=== PATIENT | female | born 1985 | race Two or more races ===

== ENCOUNTER 2019-04-05 20:20 | Inpatient (IN) | payer BC, OTHER ==
[2019-04-05] MEDS ORDERED: ELECTROLYTE-148 SOLN 1,000 ML IV SCH (21:00)
[2019-04-05] MEDS ORDERED: NALOXONE HCL 0.4 MG/ML VIAL IVPUSH PRN (21:05)
[2019-04-05 21:11] VITALS: BMI 25.0
[2019-04-05] MEDS ORDERED: FENTANYL/BUPIVACAINE/NS/PF - PCEA - 50 ML DISP.SYRIN EP SCH (21:15)
[2019-04-05 21:22] LABS: BASO % 0.5 % (0-2.0); HEMATOCRIT 37.1 % (32.4-45.2); HEMOGLOBIN 12.3 GM/dL (10.7-15.3); LYMPH % 9.3 % (8-40); MCHC 33.1 g/dl (32.0-36.0); MEAN CELL VOLUME 90.8 fl (80-96); MEAN PLT VOLUME 10.1 fl (7.5-11.1); MONO % 3.3 % (3.8-10.2); NEUT % 86.9 % (42.8-82.8); PLATELET COUNT 202 K/MM3 (134-434); RBC 4.09 M/mm3 (3.60-5.2); RDW 15.3 % (11.6-15.6); WHITE BLOOD COUNT 11.6 K/mm3 (4.0-10.0)
[2019-04-05 21:37] LABS: INR 0.93 (0.83-1.09)
[2019-04-05 21:40] LABS: ACTIVATED PTT 26.2 SECONDS (25.2-36.5)
[2019-04-05] MEDS ORDERED: LIDO 2%/EPI 1:200000 PRESRVFRE (20 ML SDVIAL) ONE (21:47)
[2019-04-05 21:50] LABS: BLOOD UREA NITROGEN 9.2 mg/dL (7-18); CALCIUM 8.8 mg/dL (8.5-10.1); CREATININE 0.6 mg/dL (0.55-1.3); POTASSIUM 3.7 mmol/L (3.5-5.1)
--- NOTE | 2019-04-05 22:18 | HP ---
Past Medical History - Primary Care Physician PCP:: Wesley De Leon E - Admission Chief Complaint: In labor, at term. History of Present Illness: First . EDC 04.15.2019. 38 wks 4 d. GBS neg. In active labor. History Source: Patient Limitations to Obtaining History: No Limitations - Past Medical History ...: 2 ...Para: 0 ...Term: 0 ...: 0 ...Spon : 0 ...Induced : 1 ...Multiple Gestation: 0 ...EDC by Sono: 04/15/19 - Past Surgical History Hx Myomectomy: No Hx Transabdominal Cerclage: No - Smoking History Smoking history: Never smoked Have you smoked in the past 12 months: No - Alcohol/Substance Use Hx Alcohol Use: No - Social History Usual Living Arrangement: Yes: With Spouse Occupation: criminal defense attorney History of Recent Travel: No Home Medications - Allergies Allergies/Adverse Reactions: Allergies Allergy/AdvReac Type Severity Reaction Status Date / Time No Known Allergies Allergy Verified 04/05/19 20:36 - Home Medications Home Medications: Ambulatory Orders Ferrous Sulfate [Feosol] 325 mg PO DAILY 04/05/19 Pnv No.95/Ferrous Fum/Folic AC [ Vitamin Tablet] 1 each PO DAILY Family Medical History Family History: Unremarkable Review of Systems - Review of Systems Constitutional: reports: No Symptoms Eyes: reports: No Symptoms HENT: reports: No Symptoms Neck: reports: No Symptoms Cardiovascular: reports: No Symptoms Respiratory: reports: No Symptoms Gastrointestinal: reports: No Symptoms Genitourinary: reports: No Symptoms Physical Exam - Maternity Vital Signs: Vital Signs Temperature 98.1 F 04/05/19 20:58 Pulse Rate 66 04/05/19 20:58 Respiratory Rate 04/05/19 20:58 Blood Pressure 100/70 04/05/19 20:58 O2 Sat by Pulse Oximetry (%) Constitutional: Yes: Well Nourished Eyes: Yes: WNL HENT: Yes: WNL Neck: Yes: WNL Cardiovascular: Yes: WNL Lungs: Clear to auscultation Breast(s): Yes: WNL - Abdominal Exam/OB Number of Fetuses: Single Presentation: Vertex Contractions: Yes Regularity: Regular Intensity: Mod/Strong Monitor Mode: External Heart Rate Location: Midline Category: I Accelerations: Uniform - Vaginal Exam/OB Dilatation (cm): 5 Effacement (%): 80 Presentation: Vertex/Position Station: 0 - Physical Exam Musculoskeletal: Yes: WNL Extremities: Yes: WNL Edema: No Integumentary: Yes: WNL Deep Tendon Reflex Grade: Normal +2 ...Motor Strength: WNL Psychiatric: Yes: WNL - Labs Lab Results: CBC, BMP 04/05/19 21:00 04/05/19 21:00 Hemorrhage Risk Assessment - Risk Factors Assessment/Plan: low risk Problem List - Problems (1) Active labor at term Code(s): [id number] - Assessment/Plan In labor. Epidural discussed. Expecting vaginal delivery.
--- NOTE | 2019-04-05 22:26 | PN ---
Progress Note, Labor Vaginal Exam #1 Labor Exam Date: 04/05/19 Labor Exam Time: 22:10 Heart Rate (range): cat 1 Dilatation: 7 Effacement (%): 100 Amniotic Membrane Status: Ruptured Presentation: Vertex/Position Station: +1 (AROM ? Epidural placed w good relief.)
[2019-04-05] MEDS ORDERED: LIDOCAINE HCL 1% PRESERVATIVE FREE - 30ML VIAL ONE (23:22)
[2019-04-05] MEDS ORDERED: OXYTOCIN 20 UNITS in 0.9% NS 20 UNIT/1,000 ML INFUS.BAG IV ONE (23:22)
--- NOTE | 2019-04-05 23:25 | PN ---
Progress Note, Labor Vaginal Exam #2 Labor Exam Date: 04/05/19 Labor Exam Time: 21:25 Dilatation: fully Station: +2 (Epidural off. Pushing.)
[2019-04-05] MEDS ORDERED: OXYTOCIN 30 UNITS in 0.9% NS 30 UNIT/500 ML INFUS.BAG IVPB ONE (23:39)
--- NOTE | 2019-04-06 00:43 | PN ---
Delivery - Delivery Vaginal Delivery: Shoulder/Difficult (Mild SD; posterior shoulder delivered first.) Maneuvers: Buchanan' Type of Anesthesia: Epidural Episiotomy/Laceration: Midline (Small epis, No lacerations. Repaired w Chr.2-0.) EBL (cc): 500 (Methergine IM) Delivery, Single - Stages of Labor Date of Delivery: 04/06/19 (nuchal cord x 1; tight.) Time of Delivery: 00:09 (Apgars 8 & 9.) Date Placenta Delivered: 04/06/19 Time Placenta Delivered: 00:12 - Condition of Infant Gender: Female Position: Left, OA (NVSD Tight nuchal cord. Mild SD; Buchanan' maneuver. Delayed clamping) - Feeding Plan Initial Plan: Exclusive throughout hospitalization Remarks - Remarks Remarks: Good delivery. Patient is very happy. So is her .
[2019-04-06] MEDS ORDERED: BISACODYL 10 MG SUPP.RECT RC PRN (00:47)
[2019-04-06] MEDS ORDERED: IBUPROFEN 600 MG TABLET (FP) PO PRN (00:47)
[2019-04-06] MEDS ORDERED: METHYLERGONOVINE MALEATE 0.2 MG/1 ML AMP IM PRN (00:47)
[2019-04-06] MEDS ORDERED: BENZOCAINE 28 GM HEMORRHOIDAL OINTMENT TP PRN (00:47)
[2019-04-06] MEDS ORDERED: WITCH HAZEL 50% (TUCKS) 40 PAD/JAR PAD TP PRN (00:47)
[2019-04-06] MEDS ORDERED: ACETAMINOPHEN 325 MG TABLET (FP) PO PRN (00:47)
[2019-04-06] MEDS ORDERED: BENZOCAINE 20% 57 GM BOTTLE TP PRN (00:47)
[2019-04-06] MEDS ORDERED: ELECTROLYTE-148 SOLN 1,000 ML IV SCH (01:00)
[2019-04-06] MEDS ORDERED: OXYTOCIN 20 UNITS in 0.9% NS 20 UNIT/1,000 ML INFUS.BAG IV SCH (01:00)
[2019-04-06] MEDS ORDERED: OXYTOCIN 20 UNITS in 0.9% NS 20 UNIT/1,000 ML INFUS.BAG IV ONE (02:43)
--- NOTE | 2019-04-06 06:11 | PN ---
Post Progress Note - Subjective Subjective: PPD # 0 Feels well. minimal pain. Happy. Post Day: 0 Type of Delivery: Vital Signs: Vital Signs Temperature 98.0 F 04/06/19 03:10 Pulse Rate 64 04/06/19 03:10 Respiratory Rate 20 04/06/19 03:10 Blood Pressure 124/68 04/06/19 03:10 O2 Sat by Pulse Oximetry (%) 99 04/06/19 01:45 Breast Exam: Yes: Soft Uterus: Yes: Fundus Firm Abdomen/GI: Yes: Abdomen soft, Tolerating PO Lochia: Yes: Rubra Lochia, amount: Moderate Extremities: Yes: Calves non-tender Perineum: Yes: Episiotomy (no pain.) - Labs Labs: CBC WBC 11.6 K/mm3 (4.0-10.0) H 04/05/19 21:00 RBC 4.09 M/mm3 (3.60-5.2) 04/05/19 21:00 Hgb 12.3 GM/dL (10.7-15.3) 04/05/19 21:00 Hct 37.1 % (32.4-45.2) D 04/05/19 21:00 MCV 90.8 fl (80-96) 04/05/19 21:00 MCH 30.0 pg (25.7-33.7) 04/05/19 21:00 MCHC 33.1 g/dl (32.0-36.0) 04/05/19 21:00 RDW 15.3 % (11.6-15.6) D 04/05/19 21:00 Plt Count 202 K/MM3 (134-434) D 04/05/19 21:00 MPV 10.1 fl (7.5-11.1) D 04/05/19 21:00 Absolute Neuts (auto) 10.1 K/mm3 (1.5-8.0) H 04/05/19 21:00 Neutrophils % 86.9 % (42.8-82.8) H D 04/05/19 21:00 Lymphocytes % 9.3 % (8-40) D 04/05/19 21:00 Monocytes % 3.3 % (3.8-10.2) L 04/05/19 21:00 Eosinophils % 0.0 % (0-4.5) D 04/05/19 21:00 Basophils % 0.5 % (0-2.0) 04/05/19 21:00 Nucleated RBC % 0 % (0-0) 04/05/19 21:00 Problem List - Problems (1) Active labor at term Assessment/Plan: Good recovery. Nursing. Good spirits. Code(s): [id number] - Assessment/Plan Uneventful NVSD. Small episiotomy, no lacerations; repaired. Doing well. Nursing. Routine PP care.
[2019-04-07 07:51] LABS: BASO % 0.5 % (0-2.0); EOS % 0.7 % (0-4.5); HEMOGLOBIN 9.8 GM/dL (10.7-15.3); LYMPH % 19.9 % (8-40); MCH 30.8 pg (25.7-33.7); MCHC 33.7 g/dl (32.0-36.0); MEAN CELL VOLUME 91.4 fl (80-96); MEAN PLT VOLUME 9.5 fl (7.5-11.1); MONO % 5.8 % (3.8-10.2); NEUT % 73.1 % (42.8-82.8); PLATELET COUNT 174 K/MM3 (134-434); RBC 3.18 M/mm3 (3.60-5.2); RDW 15.4 % (11.6-15.6); WHITE BLOOD COUNT 11.7 K/mm3 (4.0-10.0)
--- NOTE | 2019-04-07 09:00 | PN ---
Post Progress Note Type of Delivery: Vital Signs: Vital Signs Temperature 98.3 F 04/06/19 21:00 Pulse Rate 87 04/06/19 21:00 Respiratory Rate 20 04/06/19 21:00 Blood Pressure 109/67 04/06/19 21:00 O2 Sat by Pulse Oximetry (%) 99 04/06/19 01:45 Breast Exam: Yes: Soft Uterus: Yes: Fundus Firm Abdomen/GI: Yes: Abdomen soft Lochia: Yes: Rubra Lochia, amount: Small Perineum: Yes: Intact Activity: Ambulating (Doing well) - Labs Labs: CBC WBC 11.7 K/mm3 (4.0-10.0) H 04/07/19 06:15 RBC 3.18 M/mm3 (3.60-5.2) L 04/07/19 06:15 Hgb 9.8 GM/dL (10.7-15.3) L 04/07/19 06:15 Hct 29.0 % (32.4-45.2) L D 04/07/19 06:15 MCV 91.4 fl (80-96) 04/07/19 06:15 MCH 30.8 pg (25.7-33.7) 04/07/19 06:15 MCHC 33.7 g/dl (32.0-36.0) 04/07/19 06:15 RDW 15.4 % (11.6-15.6) 04/07/19 06:15 Plt Count 174 K/MM3 (134-434) 04/07/19 06:15 MPV 9.5 fl (7.5-11.1) 04/07/19 06:15 Absolute Neuts (auto) 8.6 K/mm3 (1.5-8.0) H 04/07/19 06:15 Neutrophils % 73.1 % (42.8-82.8) 04/07/19 06:15 Lymphocytes % 19.9 % (8-40) D 04/07/19 06:15 Monocytes % 5.8 % (3.8-10.2) 04/07/19 06:15 Eosinophils % 0.7 % (0-4.5) D 04/07/19 06:15 Basophils % 0.5 % (0-2.0) 04/07/19 06:15 Nucleated RBC % 0 % (0-0) 04/07/19 06:15 Problem List - Problems (1) Active labor at term Code(s): [id number] - Assessment/Plan Excellent recovery. Instructions given. Discharge.
[2019-04-07 16:02] VITALS: BP 120/67; PULSE 82; TEMP 97.8
[2019-04-07] MEDS ORDERED: SENNOSIDES/DOCUSATE COMBO (SENNA PLUS) TABLET (UD) PO PRN (22:00)
== END 2019-04-07 17:40 | disposition home or self-care (01) | DRG 807 ==
LOC: JLDR 20:20 → J3N 04-06 03:10 → J3W 04-06 15:03
PROVIDERS: ADMIT Specialist; ATTEND Specialist
PROC: 0W8NXZZ Division of Female Perineum, External Approach (ICD-10-PCS; principal; 2019-04-06)
PROC: 10E0XZZ Delivery of Products of Conception, External Approach (ICD-10-PCS; 2019-04-06)
DX: O69.1XX0 Labor and delivery complicated by cord around neck, with compression, not applicable or unspecified (principal); Z37.0 Single live birth; Z3A.38 38 weeks gestation of pregnancy
CPT/HCPCS: 36415; 59409; 80048; 85025; 85610; 85730; 86593; 86850; 86900; 86901

== ENCOUNTER 2020-10-25 13:30 | Inpatient (IN) | payer BC, OTHER ==
[2020-10-25] MEDS ORDERED: FENTANYL/BUPIVACAINE/NS/PF - PCEA - 50 ML DISP.SYRIN EP ONE (13:51)
[2020-10-25] MEDS ORDERED: PCA PUMP NR ONE (13:51)
[2020-10-25] MEDS ORDERED: OXYTOCIN 20 UNITS in 0.9% NS 20 UNIT/1,000 ML INFUS.BAG IV ONE ×2 (13:51→17:18)
[2020-10-25 14:08] LABS: BASO % 0.5 % (0-2.0); EOS % 0.1 % (0-4.5); HEMATOCRIT 34.5 % (32.4-45.2); HEMOGLOBIN 11.4 GM/dL (10.7-15.3); LYMPH % 37.4 % (8-40); MCH 27.7 pg (25.7-33.7); MCHC 32.9 g/dl (32.0-36.0); MEAN PLT VOLUME 10.5 fl (7.5-11.1); MONO % 4.5 % (3.8-10.2); NEUT % 57.5 % (42.8-82.8); PLATELET COUNT 242 K/MM3 (134-434); RBC 4.11 M/mm3 (3.60-5.2); RDW 14.8 % (11.6-15.6); WHITE BLOOD COUNT 7.7 K/mm3 (4.0-10.0)
[2020-10-25 14:10] VITALS: BMI 24.8
[2020-10-25 14:12] LABS: INR 0.96 (0.83-1.09); PROTHROMBIN TIME (PATIENT) 11.8 SEC (9.7-13.0)
[2020-10-25 14:15] LABS: ACTIVATED PTT 29.9 SECONDS (25.2-36.5)
[2020-10-25 14:26] LABS: POTASSIUM 4.5 mmol/L (3.5-5.1)
[2020-10-25 14:29] LABS: BLOOD UREA NITROGEN 11.3 mg/dL (7-18); CALCIUM 9.1 mg/dL (8.5-10.1)
[2020-10-25 14:31] LABS: CREATININE 0.8 mg/dL (0.55-1.3)
[2020-10-25] MEDS ORDERED: BENZOCAINE 20% 57 GM BOTTLE TP PRN (16:14)
[2020-10-25] MEDS ORDERED: METHYLERGONOVINE MALEATE 0.2 MG/1 ML AMP IM PRN (16:14)
[2020-10-25] MEDS ORDERED: IBUPROFEN 600 MG TABLET (FP) PO PRN (16:14)
[2020-10-25] MEDS ORDERED: BISACODYL 10 MG SUPP.RECT RC PRN (16:14)
[2020-10-25] MEDS ORDERED: ACETAMINOPHEN 325 MG TABLET (FP) PO PRN (16:14)
[2020-10-25] MEDS ORDERED: WITCH HAZEL 50% (TUCKS) 40 PAD/JAR PAD TP PRN (16:14)
[2020-10-25] MEDS ORDERED: BENZOCAINE 28 GM HEMORRHOIDAL OINTMENT TP PRN (16:14)
[2020-10-25] MEDS ORDERED: ELECTROLYTE-148 SOLN 1,000 ML IV SCH (16:15)
[2020-10-25] MEDS ORDERED: OXYTOCIN 20 UNITS in 0.9% NS 20 UNIT/1,000 ML INFUS.BAG IV SCH (16:15)
[2020-10-26 08:36] LABS: BASO % 0.4 % (0-2.0); EOS % 0.2 % (0-4.5); HEMATOCRIT 27.1 % (32.4-45.2); HEMOGLOBIN 9.2 GM/dL (10.7-15.3); LYMPH % 21.3 % (8-40); MCH 27.9 pg (25.7-33.7); MCHC 34.1 g/dl (32.0-36.0); MEAN PLT VOLUME 10.1 fl (7.5-11.1); MONO % 4.5 % (3.8-10.2); NEUT % 73.6 % (42.8-82.8); PLATELET COUNT 196 K/MM3 (134-434); RDW 14.3 % (11.6-15.6); WHITE BLOOD COUNT 14.6 K/mm3 (4.0-10.0)
[2020-10-26 13:43] VITALS: BP 105/76; PULSE 72; TEMP 98.1
[2020-10-26] MEDS ORDERED: SENNOSIDES/DOCUSATE COMBO (SENNA PLUS) TABLET (UD) PO PRN (22:00)
== END 2020-10-26 17:15 | disposition home or self-care (01) | DRG 807 ==
LOC: JLDR 13:30 → J3W 17:30
PROVIDERS: ADMIT Specialist; ATTEND Specialist
PROC: 10907ZC Drainage of Amniotic Fluid, Therapeutic from Products of Conception, Via Natural or Artificial Opening (ICD-10-PCS; principal; 2020-10-25)
PROC: 10E0XZZ Delivery of Products of Conception, External Approach (ICD-10-PCS; 2020-10-25)
PROC: 0W8NXZZ Division of Female Perineum, External Approach (ICD-10-PCS; 2020-10-25)
DX: O80 Encounter for full-term uncomplicated delivery (principal); Z37.0 Single live birth; O69.1XX0 Labor and delivery complicated by cord around neck, with compression, not applicable or unspecified; Z3A.39 39 weeks gestation of pregnancy
CPT/HCPCS: 36415; 59409; 80048; 85025; 85610; 85730; 86780; 86850; 86900; 86901; 87340